=== PATIENT | female | born 1980 | race Caucasian/White ===

== ENCOUNTER 2023-11-13 14:40 | Emergency (ER) | payer MEDICAID, SELFPAY ==
--- NOTE | ~2023-11-13 | XR_ITS ---
EXAMINATION: XR CHEST CLINICAL INFORMATION: Cough, URI COMPARISON: Chest 08/09/2018 TECHNIQUE: Frontal view of the chest was obtained. The patient was unable to remove nipple jewelry. FINDINGS: Patchy opacity in the left lower lobe is consistent with pneumonia. No pleural effusion. Mild elevation the right hemidiaphragm is again noted. No significant abnormality is noted involving the heart, mediastinum, bony thorax or soft tissues. XR/XR chest 1V IMPRESSION: Left lower lobe pneumonia.
[2023-11-13 15:54] VITALS: BP 123/69; PULSE 91; RESP 18; TEMP 36.8; O2SAT 96; BMI 31.6
--- NOTE | 2023-11-13 16:06 | ED.GENADULT ---
HPI - General Adult General Chief complaint: Dyspnea Stated complaint: Asthma Time Seen by Provider: 11/13/23 16:32 Source: patient Mode of arrival: ambulatory Limitations: no limitations History of Present Illness HPI narrative: Patient comes to the emergency room complaining of 5 days of cough with green sputum. Patient states she has history of asthma has been using her inhaler. Patient denies fever or chills Related Data Previous Rx's Medication Instructions Recorded azithromycin 250 mg tablet 250 mg PO DAILY 5 days #5 tabs 11/13/23 prednisone 50 mg tablet 50 mg PO DAILY #5 tabs 11/13/23 Allergies Allergy/AdvReac Type Severity Reaction Status Date / Time Penicillins Allergy Intermediate RASH Unverified 07/22/20 17:10 penicillin V Allergy Unknown Verified 11/09/15 00:00 Review of Systems Review of Systems: Constitutional : No Weight loss, No Fever, No Chills, No Night Sweats, No Fatigue, No Malaise ENT/Mouth : No Hearing loss, No Ear Pain, No Nasal Congestion, No Sinus Pain, No Hoarseness, No sore throat, No Rhinorrhea, No Swallowing Difficulty Eyes: No Eye Pain, No Swelling, No Redness, No Foreign Body, No Discharge, No Vision Changes Cardiovascular : No Chest Pain, No SOB, No Dyspnea on Exertion, No Orthopnea, No Edema, No Palpitations Respiratory : Coughing with sputum production, wheezing Gastrointestinal : No Nausea, No Vomiting, No Diarrhea, No Constipation, No abdominal Pain, No Hematochezia, No Melena Genitourinary : no irregular bleeding, No Dysuria, No Urinary Frequency, No Hematuria, No Urinary Incontinence, No Urgency, No Flank Pain, No Urinary Flow Changes, No Hesitancy Musculoskeletal : No joint pain, No Myalgias, No Joint Swelling Skin : No Skin Lesions, No rash Neuro : No Weakness, No Numbness, No Paresthesias, No Loss of Consciousness, No Dizziness, No Headache Psych : No Anxiety/Panic, No Depression, No SI/HI/AH/VH, No Social Issues, Heme/Lymph: No Bruising, No Bleeding,No Lymphadenopathy Endocrine : No Polyuria, No Polydipsia, No Temperature Intolerance PMFSH Past Medical History Onset Date is defined in the Problem List Problems that require an onset date and time if occurred within 24 hrs of arrival to the ED Aortic Dissection and Rupture; Neurologic impairment; Cardiopulmonary Arrest; Endotracheal Intubation; Insertion or Replacement of Mechanical Circulatory Assist Device Medical History (Updated 11/14/23 @ 00:00 by Background Daemon) Asthma exacerbation Social History Social History Advance Directives: No Advance Directives Information Provided: No Physical Exam ED Vital Signs: Vital Signs - 24 hr 11/13/23 15:54 11/13/23 16:30 Temperature 98.3 F Pulse Rate 91 90 Respiratory Rate 18 20 Blood Pressure 123/69 Pulse Oximetry 96 Oxygen Delivery Method Room Air BMI result Body Mass Index 31.6 Const Other: Appearance: Alert. Oriented X3. No acute distress. Well-appearing Eyes: Pupils equal, round and reactive to light. ENT: Pharynx normal. Neck: Normal inspection. Neck supple. No lymph nodes noted. No crepitus CVS: Normal heart rate and rhythm. Pulses normal. Normal S1 and S2 Respiratory: No respiratory distress. Very occasional wheezing, almost forceful wheezing Abdomen: Soft and nontender. No rigidity. No distention. Skin: Skin warm and dry. Normal skin color. Normal skin turgor. Extremities: No lower extremity edema. No Lacerations. No Rash Neuro: Oriented X 3. No motor deficit. No sensory deficit. Moving all extremities. No slurred speech. CN 2 through 12 grossly intact Psych: calm, cooperative, normal affect Course Course Course Narrative: RME: 43-year-old female tested COVID positive last week states coughing with green sputum. Patient has audible wheezing. E.d. bronchodilator protocol. Start ordered. Chest x-ray ordered. Prednisone ordered Medications Administered Discontinued Medications Generic Name Dose Route Start Last Admin Trade Name Freq PRN Reason Stop Dose Admin Albuterol/Ipratropium 3 ml 11/13/23 16:28 11/13/23 16:38 Albuterol/Iprat 2.5/0.5mg 3 Ml Ampul.Neb INHALE 11/13/23 16:29 3 ml ONCE ONE Administration Prednisone 60 mg 11/13/23 16:04 11/13/23 17:23 Prednisone 20 Mg Tablet PO 11/13/23 16:05 60 mg ONCE ONE Administration Medical Decision Making Medical Decision Making MDM Narrative: -my interpretation of labs: patient tested positive for COVID-19 -patient given nebulization treatments, prednisone -patient wheezing, oxygen saturation 100% on room air. -patient is outside the window of treatment for Paxlovid -my interpretation of chest x-ray, possible pneumonia -patient states that she has enough albuterol at home her treatments. Differential Diagnosis Differential Diagnoses: The differential diagnosis associated with the presentation includes (Asthma, COVID, influenza, viral URI) Lab Data MDM Lab Attestation statement: I reviewed the patient's lab results. Labs: Lab Results 11/13/23 Range/Units 16:02 Influenza Type A (PCR) NEGATIVE (Negative) Influenza Type B (PCR) NEGATIVE (Negative) RSV RNA Qual (PCR) NEGATIVE (Negative) SARS-CoV-2 RNA (RT-PCR) POSITIVE A (Negative) Independent Interpretation I performed an independent interpretation of an: Plain X-Ray Radiology Impression Discussion of test interpretation with radiology: I have reviewed the radiologist's reading. Radiologist Impression: Patchy opacity in the left lower lobe is consistent with pneumonia. No pleural effusion. Mild elevation the right hemidiaphragm is again noted. No significant abnormality is noted involving the heart, mediastinum, bony thorax or soft tissues. XR/XR chest 1V IMPRESSION: Left lower lobe pneumonia. Discharge Plan Discharge Clinical Impression: Asthma, COVID-19 Patient Disposition: Home, Self-Care Instructions: Asthma (ED), Community Acquired Pneumonia (ED), COVID-19 (Coronavirus Disease 2019) (ED) Additional Instructions: Please follow-up with your primary care physician tomorrow. If you have any worsening or new symptoms, please return to the emergency room or call 911 Prescriptions: New prednisone 50 mg tablet 50 mg PO DAILY Qty: 5 0RF azithromycin 250 mg tablet 250 mg PO DAILY 5 Days Qty: 5 0RF Interventions: ED Discharge Assessment Last Done: 11/13/23 17:55 Discharge Date/Time: 11/13/23 17:56
--- OUTSIDE RECORDS SUMMARY | 2023-11-13 16:07 | XMS_ITS | Continuity of Care Document ---
Author Name Unknown Organization [facility] ter Address [address] [place] [id number]- Care Team Providers Care Life Skills Trainer Name Role Phone Cheryl Alexander Primary Care Physician [place] [facility] [place] 12/29/21 - 12/29/[address] [address]- Discharge Disposition: A-D/C Walkout Attending Physician: Not on Staff, Attending MD Admitting Physician: Not on Staff, Admitting MD Referring Physician: Not on Staff, Referring MD Allergies, Adverse Reactions, Alerts Substance Reaction Severity Status penicillin Active penicillins Active Immunizations Given and Recorded Vaccine Date Status Refusal Reason pneumococcal 23-valent vaccine 10/14/16 Given influenza virus vaccine, inactivated 10/14/16 Give n Medications Advair HFA 230 mcg / 21 mcg 2 puffs, Inhalation, 2 times a day, # 180 each, 2 Refills, Maintenance, 12/31/17 8:01:00, Aerosol, 2 puffs Inhalation 2 times a day Start Date: 12/31/17 Status: Ordered Albuterol 90 mcg Inhaler Maintenance, 03/29/15 7:29:56 Start Date: 03/29/15 Status: Ordered buPROPion 150 mg/12 hours (SR) oral tablet, extended release 1 tablet = 150 mg, By Mouth, 2 times a day, # 180 tablet, 3 Refills, Maintenance, 12/17/17 8:57:45,ER Tablet Start Date: 12/17/17 Status: Ordered Flovent HFA 44 mcg/inh inhalation aerosol 2 puffs, Inhalation, 2 times a day, # 11 Gm, 0 Refills, Maintenance, 10/13/16 17:48:28, Aerosol Start Date: 10/13/16 Status: Ordered fluticasone-salmeterol 232 mcg-14 mcg/inh inhalation powder 1 puffs, Inhalation, 2 times a day, # 1 each, 0 Refills, Maintenance, 12/17/17 9:02:16, 1 puffs Inhalation 2 times a day Start Date: 12/17/17 Status: Ordered omeprazole 20 mg oral enteric coated capsule 1 capsule = 20 mg, By Mouth, Daily, before a meal, 0 Refills, Maintenance, 10/13/16 17:48:18, EC Capsule Start Date: 10/13/16 Status: Ordered Qvar 80 mcg/inh inhalation aerosol = 80 mcg, Inhalation, 2 times a day, 0 Refills, Maintenance, 12/17/17 8:27:41 Start Date: 12/17/17 Status: Ordered Qvar Redihaler 80 mcg/inh inhalation aerosol See Instructions, Prepare Study: QVAR in addition to daily maintenance meds. Take QVAR 1 puff for EACH puff of beta-agonist or 5 puffs for each nebulizer use., # 1 each, 11 Refills, Maintenance, 11/18/18 16:43:03 EST, PREPARE STUDY PATIENT: THIS PRESC... Start Date: 11/18/18 Status: Ordered Qvar Redihaler 80 mcg/inh inhalation aerosol See Instructions, PREPARE Study 1 puff for each puff of beta-agonist, 5 puffs for each nebulizer use. Does not replace daily maintenance medication, # 1 each, 2 Refills, Maintenance, 05/21/19 12:52:33 EDT, Prescription for refills only, PREPARE Study... Start Date: 05/21/19 Status: Ordered Qvar with Dose Counter 80 mcg/inh inhalation aerosol See Instructions, PREPARE STUDY: take 1 puff for each puff of beta-agonist. 5 puffs for each nebulization. This plan does not replace daily maintenace meds, # 1 each, 11 Refills, Maintenance, 06/25/18 18:19:37 EDT, PREPARE STUDY: take 1 puff for each... Start Date: 06/25/18 Status: Ordered Symbicort 80mcg/4.5mcg Inhaler 2, puffs, Inhalation, 2 times a day, # 1 each, Refills 0, Tot. Refills 0, Maintenance, 04/02/21 14:13:00 EDT, Aerosol, Route to Pharmacy Electronically, NCPDP_[id number], [facility], 165, cm, 04/02/21 11:51:00 EDT, Height Start Date: 04/02/21 Status: Ordered Ventolin HFA 108 mcg/inh inhalation aerosol with adapter 2 puffs, Inhalation, 4 times a day, 0 Refills, Maintenance, 12/17/17 8:27:35 Start Date: 12/17/17 Status: Ordered Vital Signs Most recent to oldest [Reference Range]: 1 2 Oxygen Saturation [94-100 %] 96 % (12/29/21 4:37 PM) 95 % (12/29/21 4:27 PM) Pulse Rate [55-90 bpm] 106 bpm *H* (12/29/21 4:37 PM) 101 bpm *H* (12/29/21 4:27 PM) Blood Pressure [90-138/55-84 mm Hg] 125/ 68mm Hg (12/29/21 4:37 PM) Respiratory Rate [16-30 br/min] 20 br/mi n (12/29/21 4:37 PM) Temperature [96.8-100.4 DegF] 98.8 DegF (12/29/21 4:37 PM) Mode of Delivery (Oxygen) Room air (12/29/21 4:37 PM) Room air (12/29/21 4:27 PM) Blood pressure sites Arm, right (12/29/21 4:37 PM) Temperature Route Oral (12/29/21 4:37 PM) Social History Social History Type Response Smoking Status Current every day ken lazo entered on: 12/17/17 Sex
--- OUTSIDE RECORDS SUMMARY | 2023-11-13 16:07 | XMS_ITS | Continuity of Care Document ---
Author Name Unknown Organization [facility] ter Address [address] [place] [id number]- Care Team Providers Care Sawmill Production Worker Name Role Phone Cheryl Alexander Primary Care Physician Encounter [facility] [place] Date(s): 09/07/23 - 09/07/[address] [address]- Discharge Disposition: A-D/C Walkout Attending Physician: Not [...] 11/18/18 16:43:03 EST, PREPARE STUDY PATIENT: THIS [facility]... Start Date: 11/18/18 Status: Ordered Qvar Redihaler [...] 14:13:00 EDT, Aerosol, Route to Pharmacy Electronically, NCPDP_[id number], [facility], 165, cm, 04/02/21 11:51:00 EDT, Height Start Date: 04/02/21 Status: Ordered Ventolin HFA 108 mcg/inh inhalation aerosol with adapter 2 puffs, Inhalation, 4 times a day, 0 Refills, Maintenance, 12/17/17 8:27:35 Start Date: 12/17/17 Status: Ordered Vital Signs Most recent to oldest [Reference Range]: 1 Oxygen Saturation [94-100 %] 99 % (09/07/23 10:18 AM) Pulse Rate [55-90 bpm] 84 bpm (09/07/23 10:18 AM) Blood Pressure [90-138/55-84 mm Hg] 137/ 77mm Hg (09/07/23 10:18 AM) Respiratory Rate [16-30 br/min] 20 br/mi n (09/07/23 10:18 AM) Temperature [96.8-100.4 DegF] 98.1 DegF (09/07/23 10:18 AM) Mode of Delivery (Oxygen) Room air (09/07/23 10:18 AM) Blood pressure sites Arm, left (09/07/23 10:18 AM) Temperature Route Oral (09/07/23 10:18 AM) Social History Social History Type Response Smoking Status Current every day ken lazo entered on: 12/17/17 Sex Patient Care team information Care Team Personnel Name: Rico Odonnell RN Position: Carolyn RN Member Role: Primary Care Nurse Care Team Related Persons Name: SONY HSU Address: home [address] [place] [address] Name: EYAD SHEEHAN Address: [address] [place] [address]
--- OUTSIDE RECORDS SUMMARY | 2023-11-13 16:08 | XMS_ITS | Continuity of Care Document ---
Author Name Unknown Organization [facility] ter Address [address] [place] [id number]- Care Team Providers Care Liner Installer Name Role Phone Kyle Velasquez Primary Care Physician [phone] Encounter [facility] [place] Date(s): 06/04/21 - 06/04/[address] [address]- Discharge Disposition: A-D/C Walkout Attending Physician: Not [...] 11/18/18 16:43:03 EST, PREPARE STUDY PATIENT: THIS [facility]... Start Date: 11/18/18 Status: Ordered Qvar Redihaler [...] 14:13:00 EDT, Aerosol, Route to Pharmacy Electronically, NCPDP_[id number], [facility], 165, cm, 04/02/21 11:51:00 EDT, Height Start Date: 04/02/21 Status: Ordered Ventolin HFA 108 mcg/inh inhalation aerosol with adapter 2 puffs, Inhalation, 4 times a day, 0 Refills, Maintenance, 12/17/17 8:27:35 Start Date: 12/17/17 Status: Ordered Vital Signs Most recent to oldest [Reference Range]: 1 2 3 Oxygen Saturation [94-100 %] 99 % (06/04/21 4:53 PM) 100 % (06/04/21 11:36 AM) 100 % (06/04/21 11:17 AM) Pulse Rate [55-90 bpm] 74 bpm (06/04/21 4:53 PM) 69 bpm (06/04/21 11:36 AM) 84 bpm (06/04/21 10:51 AM) Blood Pressure [90-138/55-84 mm Hg] 128/76mm Hg (06/04/21 4:53 PM) 127/68mm Hg (06/04/21 11:36 AM) Diastolic Blood Pressure [55-84 mm Hg] 70 mm Hg (06/04/21 11:17 AM) Respiratory Rate [16-30 br/min] 18 br/min (06/04/21 4:53 PM) 18 br/min (06/04/21 11:36 AM) 18 br/min (06/04/21 11:07 AM) Temperature [96.8-100.4 DegF] 98.5 DegF (06/04/21 4:53 PM) 98.9 DegF (06/04/21 11:36 AM) Mode of Delivery (Oxygen) Room air (06/04/21 4:53 PM) Room air (06/04/21 11:36 AM) Room air (06/04/21 11:17 AM) Blood pressure sites Arm, right (06/04/21 4:53 PM) Arm, right (06/04/21 11:36 AM) Arm, left (06/04/21 11:17 AM) Temperature Route Oral (06/04/21 4:53 PM) Oral (06/04/21 11:36 AM) Oral (06/04/21 11:17 AM) Social History Social History Type Response Smoking Status Current every day ken lazo entered on: 12/17/17 Sex
--- OUTSIDE RECORDS SUMMARY | 2023-11-13 16:08 | XMS_ITS | Continuity of Care Document ---
Author Name Unknown Organization [facility] ter Address [address] [place] [id number]- Care Team Providers Care Javascript Ui Developer Name Role Phone Kyle Velasquez Primary Care Physician [place] [facility] [place] 04/02/21 - 04/02/[address] [address]- Encounter Diagnosis Asthma exacerbation(Final) - 04/02/21 Discharge Disposition: A-D/C Home Attending Physician: Yary Cheung MD Admitting Physician: Yary Cheung MD Referring Physician: Not on Staff, Referring [...] EC Capsule Start Date: 10/13/16 Status: Ordered predniSONE 20 mg oral tablet 3 tablet = 60 mg, By Mouth, Daily, for 5 days, # 15 tablet, 0 Refills, Acute 04/07/21 14:15:00 EDT,04/02/21 14:15:00 EDT, Tablet, [facility], Partial fill upon patient request if the prescription is for a schedule II opioid drug., 165, cm,... Start Date: 04/02/21 Stop Date: 04/07/21 Status: Ordered Qvar 80 mcg/inh inhalation aerosol [...] 14:13:00 EDT, Aerosol, Route to Pharmacy Electronically, NCPDP_[id number], [facility], 165, cm, 04/02/21 11:51:00 EDT, Height Start Date: 04/02/21 Status: Ordered Ventolin HFA 108 mcg/inh inhalation aerosol with adapter 2 puffs, Inhalation, 4 times a day, 0 Refills, Maintenance, 12/17/17 8:27:35 Start Date: 12/17/17 Status: Ordered Vital Signs Most recent to oldest [Reference Range]: 1 2 3 Height 165 cm (04/02/21 11:51 AM) Oxygen Saturation [94-100 %] 99 % (04/02/21 3:00 PM) 96 % (04/02/21 12:52 PM) 98 % (04/02/21 11:51 AM) Pulse Rate [55-90 bpm] 92 bpm *H* (04/02/21 3:00 PM) 89 bpm (04/02/21 12:52 PM) 102 bpm *H* (04/02/21 11:51 AM) Blood Pressure [90-138/55-84 mm Hg] 145/76mm Hg *H* (04/02/21 3:00 PM) 135/60mm Hg (04/02/21 12:52 PM) 124/71mm Hg (04/02/21 11:51 AM) Respiratory Rate [16-30 br/min] 16 br/min (04/02/21 3:00 PM) 22 br/min (04/02/21 12:52 PM) 24 br/min (04/02/21 11:51 AM) Temperature [96.8-100.4 DegF] 98.1 DegF (04/02/21 3:00 PM) 98.1 DegF (04/02/21 11:51 AM) Mode of Delivery (Oxygen) Room air (04/02/21 3:00 PM) Room air (04/02/21 12:52 PM) Room air (04/02/21 11:51 AM) Blood pressure sites Arm, left (04/02/21 3:00 PM) Arm, left (04/02/21 12:52 PM) Arm, right (04/02/21 11:51 AM) Temperature Route Oral (04/02/21 3:00 PM) Oral (04/02/21 11:51 AM) Social History Social History Type Response Smoking Status Current every day ken lazo entered on: 12/17/17 Sex
[2023-11-13 16:30] VITALS: PULSE 90; RESP 20; O2SAT 100
[2023-11-13] MEDS: Albuterol/Iprat 2.5/0.5MG 3 ML AMPUL.NEB INHALE (16:38)
[2023-11-13 16:57] LABS: Influenza A PCR NEGATIVE (Negative); Influenza B PCR NEGATIVE (Negative); Resp Syncy Virus RNA Qual PCR NEGATIVE (Negative); SARS COV2 PCR INHOUSE POSITIVE (Negative)
[2023-11-13] MEDS: predniSONE 20 MG TABLET 60 MG PO (17:23)
== END 2023-11-13 17:56 | disposition home or self-care (01) ==
PROVIDERS: Physician Assistant; Emergency Provider Emergency Medicine
DX: U07.1 COVID-19 (principal); R06.02 Shortness of breath; R05.9 Cough, unspecified
CPT/HCPCS: 0241U; 71045; 94640; 99283; 99284

== ENCOUNTER 2025-08-19 19:18 | Emergency (ER) | payer SELFPAY ==
--- NOTE | ~2025-08-19 | XR_ITS ---
CLINICAL HISTORY: short of breath 2 view chest x-ray Comparison: CR/NV/SR - XR CHEST 2 VIEWS - 11/13/2023 04:35 PM EST Findings: No dense focal airspace consolidation. Peribronchial edema. No effusion. No pneumothorax. Normal heart size. No acute soft tissue or osseous abnormality. Impression: 1. Peribronchial edema commonly seen in setting of viral versus reactive airways disease. This document has been electronically signed by: Gloria De Leon MD on 08/19/2025 20:42:27
--- NOTE | 2025-08-19 19:33 | ED_ITS ---
[facility] - General Adult General Chief complaint: Asthma Stated complaint: asthma Time Seen by Provider: 08/19/25 22:19 Source: patient Limitations: no limitations History of Present Illness ED Provider: Dr. Gonzalez [facility] narrative: This is a 45-year-old female history of asthma presented hospital today for shortness of breath and wheezing. Patient stated she use her asthma inhaler at home without any alleviation. Due to her wheezing she presents to the ER for evaluation. Related Data Previous Rx's ?Medication ?Instructions ?Recorded azithromycin 250 mg tablet 250 mg PO DAILY 5 days #5 t abs 11/13/23 prednisone 50 mg tablet 50 mg PO DAILY #5 tabs 11/13 albuterol sulfate 90 mcg/actuation 2 puff inhalation Q 6H PRN 08/19/25 aerosol inhaler (Ventolin HFA) shortness of breath or wheezing #6.7 grams azithromycin 250 mg tablet See Rx Instructions PO .COM PLEX #6 08/19/25 tabs prednisone 50 mg tablet 50 mg PO DAILY 5 days #5 tab s 08/19/25 Allergies Allergy/AdvReac Type Severity Reaction Status Date / Time Penicillins Allergy Intermediate RASH Verified 08/19/25 19:37 penicillin V Allergy Unknown Rash Verified 08/19/25 19:37 Review of Systems 2 Review of Systems: Pertinent review of systems as mentioned in [facility]. All other system otherwise negative. [facility] Past Medical History [facility] Narrative: Medical history as mentioned in [facility] Medical History (Updated 08/19/25 @ 23:50 by Celeste Gonzalez DO) Asthma exacerbation Social History Social History Advance Directives: No Advance Directives Information Provided: Yes Do you have a plan to hurt others: No Plan Physical Exam ED Exam Exam: General: Pleasant, no distress, interacting appropriately Head: Normacephalic, atraumatic ENT: oral mucosa moist, neck supple, no tracheal deviation Cardiovascular: regular rate, regular rhythm, no murmurs, rubbing, gallops Respiratory: Bilateral wheezing on exam Neurological: Awake and alert, no facial droop noted Skin: Warm and dry Psychiatric: Appropriate mood and thoughts Vital Signs: Vital Signs - 24 hr 08/19/25 19:34 08/19/25 22:03 08/19/25 23:23 Temperature 98.3 F 98.4 F Pulse Rate 63 61 72 Respiratory Rate 16 16 Blood Pressure 142/75 H 135/57 L Pulse Oximetry 98 96 Oxygen Delivery Method Room Air Room Air BMI result Body Mass Index 30.9 Course Course Course Narrative: This is a Rapid Medical Examination (RME) performed by Shane Gooden PA-C in triage. Full HPI, ROS, assessment and treatment plan per primary provider in the Main ED. Hx: 45 yo F hx asthma here w/ concerns of asthma exacerbation. increasing wheezing/sob x1 week. not responsive w/ home neb/ inhalers. grandson sick at home. PE/vitals: not hypoxic or tachycardic.expiratory wheezes. no resp distress. Plan: labs, viral swabs, cxr Medications Administered Discontinued Medications Generic Name Dose Route Start Last Admin Trade Name Freq PRN Reason Stop Dose Admin Albuterol Sulfate 2.5 mg/ 0 mg 08/19/25 23:21 08/19/25 23:22 Albuterol/Ipratropium 3 ml INHALE 08/19/25 23:22 1 dose ONCE ONE Administration Prednisone 60 mg 08/19/25 22:47 08/19/25 23:09 Prednisone 20 Mg Tablet PO 08/19/25 22:48 60 mg ONCE ONE Administration Medical Decision Making Medical Decision Making [facility] Narrative: This is a 45-year-old female history of asthma presented hospital today for evaluation of shortness of breath. We will plan to give patient a breathing treatment here. Prednisone will be provided the patient. Chest x-ray show inflammatory process in the chest. Lab work otherwise unremarkable. We will plan to reassess patient after treatment. Patient stated the breathing appears similar to when she had arrived. Patient is not tachypneic nor hypoxic. We will plan to discharge patient home at this time. We will start patient on azithromycin, prednisone. We will refill her albuterol inhaler as well. The patient is agreeable to this plan all questions were addressed. Differential Diagnosis Differential Diagnoses: The differential diagnosis associated with the presentation includes Asthma exacerbation, pneumonia, bronchitis Lab Data [facility] Lab Attestation statement: I reviewed the patient's lab results. 08/19/25 19:42 08/19/25 19:42 Labs: Lab Results 08/19/25 Range/Units 19:42 WBC 9.8 (4.8-10.8) X10*3/uL RBC 4.27 (4.20-5.50) X10*6/uL Hgb 13.0 (12.0-16.0) g/dl Hct 38.6 (37.0-47.0) % MCV 90.4 (80.0-98.0) fL MCH 30.4 (27.0-33.0) pg MCHC 33.7 (31.0-35.0) g/dl RDW 12.7 (11.0-16.0) % Plt Count 292 (160-400) X10*3/uL MPV 9.6 (9.4-12.3) fL Immature Gran % (Auto) 0.2 (0.0-0.4) % Neut % (Auto) 48.5 (45-73) % Lymph % (Auto) 36.2 (20-40) % [place] % (Auto) 7.3 (2-11) % Eos % (Auto) 7.4 H (0-4) % Baso % (Auto) 0.4 (0-2) % Lymph # (Auto) 3.5 (1.2-4.9) X10*3/uL [place] # (Auto) 0.7 (0.1-1.2) X10*3/uL Eos # (Auto) 0.7 H (0.0-0.4) X10*3/uL Baso # (Auto) 0.0 (0.0-0.2) X10*3/uL Abs Immat Gran (auto) 0.02 (0.00-0.03) X10*3/uL Absolute Neuts (auto) 4.7 (2.0-8.3) x10*3/uL Absolute Nucleated RBC 0.000 (0.0-0.012) X10*3/uL Nucleated RBC % (auto) 0.0 (0.0-0.2) /100WBC Sodium 142 (135-145) mmol/L Potassium 4.4 (3.3-5.1) mmol/L Chloride 110 H (96-108) mmol/L Carbon Dioxide 25 (22-29) mmol/L Anion Gap 11 L (12-20) BUN 12 (9-16) mg/dL Creatinine 0.66 (0.5-1.4) mg/dL Estim Creat Clear Calc 101.0 Estimated GFR > 60 Random Glucose 98 (60-115) mg/dL Calcium 9.5 (8.4-10.2) mg/dL Magnesium 2.1 (1.6-2.6) mg/dL Total Bilirubin 0.3 (0.0-1.0) mg/dL AST 17 (5-31) U/L ALT 20 (0-31) U/L Alkaline Phosphatase 83 (39-117) U/L Total Protein 6.7 (6.5-8.0) g/dL Albumin 4.3 (3.5-5.0) g/dL COVID-19 (JULIETA) Negative (Negative) COVID-19 Clin Com See Note Influenza Type A (COLIN) Negative (Negative) Influenza Type B (COLIN) Negative (Negative) Influenza A & B Note See Note Independent Interpretation I performed an independent interpretation of an: Plain X-Ray Radiology Impression Discussion of test interpretation with radiology: I have reviewed the radiologist's reading. Prescription Management I considered prescription management with: Antibiotic Prednisone, albuterol inhaler Chronic Conditions Asthma Discharge Plan Discharge Clinical Impression: Asthma with acute exacerbation Qualifiers: Asthma severity: mild Asthma persistence: persistent Qualified Code(s): J45.31 - Mild persistent asthma with (acute) exacerbation Patient Disposition: Home, Self-Care Instructions: Asthma (ED) Prescriptions: New azithromycin 250 mg tablet See Rx Instructions .ROUTE .COMPLEX Qty: 6 0RF Rx Instructions: For 250 mg dose pack: take 500 mg today (day 1), then 250 mg for 4 days (days 2-5) prednisone 50 mg tablet 50 mg PO DAILY 5 Days Qty: 5 0RF albuterol sulfate [Ventolin HFA] 90 mcg/actuation HFA aerosol inhaler 2 puff inhalation Q6H PRN (Reason: shortness of breath or wheezing) Qty: 6.7 0RF No Action prednisone 50 mg tablet 50 mg PO DAILY Qty: 5 0RF azithromycin 250 mg tablet 250 mg PO DAILY 5 Days Qty: 5 0RF Print Language: Mosotho
[2025-08-19 19:34] VITALS: BP 142/75; PULSE 63; RESP 16; TEMP 36.8; O2SAT 98; BMI 30.9
[2025-08-19 19:48] LABS: Hematocrit 38.6 % (37.0-47.0); Hemoglobin 13.0 g/dl (12.0-16.0); Imm Gran Abs Auto 0.02 X10*3/uL (0.00-0.03); Imm Gran Pct Auto 0.2 % (0.0-0.4); Lymphocytes Absolute Auto 3.5 X10*3/uL (1.2-4.9); MANUAL DIFF FLAG NO; Mean Corpuscular HGB Conc 33.7 g/dl (31.0-35.0); Mean Corpuscular Hemoglobin 30.4 pg (27.0-33.0); Mean Corpuscular Volume 90.4 fL (80.0-98.0); NRBC Abs Auto 0.000 X10*3/uL (0.0-0.012); NRBC Pct Auto 0.0 /100WBC (0.0-0.2); Platelet Count 292 X10*3/uL (160-400); Red Blood Count 4.27 X10*6/uL (4.20-5.50); White Blood Count 9.8 X10*3/uL (4.8-10.8)
--- OUTSIDE RECORDS SUMMARY | 2025-08-19 19:48 | XMS_ITS | Clinical Summary ---
Demographics Address [address] [facility] [address] [place] [address] Mobile Phone Preferred Language Nigerian; Castilian Marital Status Single Mosque Affiliation Unknown Race White Ethnic Group or Author Organization [facility] Address [address] [place] [address] Care Team Providers Care Cash Applications Coordinator Name Role Phone Bakari Tilley MD Primary Care Provider [phone] Source Comments PLEASE NOTE, if this patient is a minor, it may be UNLAWFUL to discuss sensitive information that is contained in these records (such as FAMILY PLANNING, MENTAL HEALTH or SUBSTANCE ABUSE) with the minor patient's parent or other person without the patient's specific authorization.[facility] Allergies Active Allergy Reactions Criticality Noted Date Comments Penicillin Swelling 08/23/2015 Medications nebulizer accessoriesIndica tions:Moderate persistent asthma with acute exacerbation FOR ASTHMA TREATMENT 1 Device 1 0 Active nebulizer and compressorIndicat ions:Moderate persistent asthma with acute exacerbation FOR ASTHMA TREATMENT 1 Each 0 Active bismuth subsalicylate (PEPTO BISMOL) 262 mg/15 mL suspensionIndicat ions:Upset stomach Take 15 mL by mouth every 6 (six) hours as needed for indigestion 236 Bottle 0 Active ibuprofen 400 mg tabletIndications :Episodic tension-type headache, not intractable Take 1 Tab by mouth 3 (three) times daily as needed for pain Take with food 30 Tab 0 Active cholecalciferol, vitamin D3, 50 mcg (2,000 unit) capsule Take 1 Capsule by mouth once daily 1 Active diclofenac sodium (VOLTAREN) 1 % gelIndications:Ac [place] bilateral low back pain without sciatica Apply topically 2 (two) times daily 100 g 1 Active oxymetazoline (AFRIN SINUS, OXYMETAZOLINE,) 0.05 % nasal sprayIndications: Viral upper respiratory tract infection Place 2 Sprays into the nostril(s) 2 (two) times daily 15 mL 1 Active cyclobenzaprine (FLEXERIL) 5 mg tabletIndications :Acute bilateral low back pain without sciatica Take 1 Tablet by mouth nightly at bedtime 10 Tablet 3 Active lidocaine (LIDODERM) 5 % patchIndications: Acute bilateral low back pain without sciatica Place 1 Patch onto the skin once daily (every 24 hours) 30 Patch 3 3 Active traMADoL (ULTRAM) 50 mg tabletIndications :Acute pain of right shoulder Take 1 Tablet by mouth every 6 (six) hours as needed for pain 30 Tablet 3 Active budesonide-formot Bertin (SYMBICORT) 160-4.5 mcg/actuation inhalerIndication s:Moderate persistent asthma with acute exacerbation INHALE 2 PUFFS INTO THE LUNGS TWICE A DAY 10.2 g 5 3 Active albuterol (ACCUNEB) 0.63 mg/3 mL nebulizer solutionIndicatio ns:Moderate persistent asthma with acute exacerbation USE 1 VIAL VIA NEBULIZER EVERY 6 HOURS NEEDED FOR WHEEINZING 300 mL 11 3 Active albuterol HFA 90 mcg/actuation inhalerIndication s:Moderate persistent asthma with acute exacerbation Inhale 2 Puffs into the lungs every 4 (four) hours as needed for shortness of breath or wheezing 18 g 11 3 Active pantoprazole (PROTONIX) 40 mg EC tabletIndications :Gastroesophageal reflux disease without esophagitis Take 1 Tablet by mouth once daily 30 Tablet 2 3 Active acetaminophen (TYLENOL) 500 mg tablet Take 1 Tablet by mouth every 6 (six) hours as needed for pain 60 Tablet 1 3 Active montelukast (SINGULAIR) 10 mg tabletIndications :Moderate persistent asthma with acute exacerbation TAKE 1 TABLET BY MOUTH EVERYDAY AT BEDTIME 90 Tablet 1 3 Active predniSONE (DELTASONE) 20 mg tabletIndications :COVID-19 virus infection,Moderat e persistent asthma with acute exacerbation Take 1 Tablet by mouth once daily 5 Tablet 4 Active dextromethorphan- guaifenesin (ROBITUSSIN DM) 10-100 mg/5 mL syrupIndications: Viral upper respiratory tract infection Take 5 mL by mouth 3 (three) times daily as needed for cough or congestion 236 mL 4 Active hydrOXYzine HCL (ATARAX) 25 mg tabletIndications :Anxiety Take 1 Tablet by mouth 3 (three) times daily as needed for anxiety 60 Tablet 1 4 Active Active Problems Problem Noted Date Diagnosed Date GERD (gastroesophageal reflux disease) 9 Bilateral hand pain 02/14/2017 Overview (02/19/2017): Saw neuro on 02/12/2017: referred for EMG emg done 02/12/17: normal EMG Leiomyoma of uterus 02/05/2017 Overview (02/05/2017): 01/31/17 US done at [facility]: 2 small uterine leiomyoma mildly decreased since 09/2016: dominant follicle in right ovary vs cyst increased in size since prior study. Dominant follicle vs cyst in left ovary Left upper quadrant abdominal mass 02/05/2017 Overview (02/05/2017): 01/25/17 Ultrasound showed no sonographic correlation to palpable area. Further assessment with CT needed. On 02/01/17 pelvic u/s showed dominant follicle in left ovary measuring 2.3x1.8x2.2cm History of Papanicolaou smear of cervix 12/10/19 Overview (12/10/2016): Done 11/23/2016: Negative for squamous intraepithelial lesion and malignancy. Negative HPV Repeat in 5 year Cervical dysplasia 10/25/2015 Overview (10/25/2015): Had a Leep done 2009. No follow up since then. HPV negative Immune to hepatitis A 10/25/2015 Immune to hepatitis B 10/25/2015 Depression 10/25/2015 Overview (10/25/2015): Smoking to cope, No meds but tried- trazodone, Paxil, Wellbutrin, Buspar. Umbilical hernia 10/25/2015 Pterygium 10/25/2015 Overview (10/25/2015): Small Allergic rhinitis 10/25/2015 Asthma 10/25/2015 Overview (01/16/2018): Went to pulmonary on 12/17/2017: [facility] pulm: triggers need to be identified- will do rast testing and IgE panel. Will check phenotype she belongs to. Started her on advair 230, fluticasone/solumedrol 230/21 mcg one inhalation BID. Resolved Problems Problem Noted Date Diagnosed Date Resolved Date Vaginosis 10/25/2015 06/24/2021 Immunizations Immunization Administration Dates Next Due Flu, Preservative Free 11/06/2017 HEP B,ADULT 06/05/2008 Hep A, Ped/adol, 2 Dose 06/05/2008 Hep B, Adult/Adol ([id number]/RECOMBIVAX-AD ULT) 06/05/2008 INFLUENZA, SEASONAL, INJECTABLE 10/21/2015,08/27 PFIZER COVID VACCINE, PURPLE CAP, 12+ 04/20/2021 ,03/10/2021 PNEUMOCOCCAL CONJUGATE PCV 13 11/06/2017 PPD 12/23/2019 [facility] Funded Flu Vaccine 10/21/2012 TDAP 06/26/2012 ZOSTER VACCINE, RECOMBINANT (SHINGRIX) 4,08/16/2023 Family History Medical History Relation Name Comments Asthma Father Asthma Mother Unknown Sister Relation Name Status Comments Brother 1 Alive Brother 2 Alive Father Mother Alive Sister Alive Social History Tobacco Use Types Packs/Day Years Used Date Smoking Tobacco: Some Days Cigarettes Passive Smoke Exposure: Never Smokeless Tobacco: Never Tobacco Cessation:Ready to Q uit: No; Counseling Given: Yes Comments:2-3 cig a day when drinking Alcohol Use Standard Drinks/Week Comments Yes 0 (1 standard drink = 0.6 oz pur e alcohol) Occasional Social Connections Answer Date Recorded Connectedness 0 09/11/2023 Financial Resource Strain Answer Date R ecorded Financial Resource Strain 0 2022 Stress Answer Date Recorded Stress 0 09/11/2023 Physical Activity Answer Date Recorded Physical Activity 0 06/29/2019 Food Insecurity Answer Date Recorded Food 0 09/11/2023 Transportation Needs Answer Date Record ed Transportation 0 09/11/2023 Housing Stability Answer Date Recorded Housing 0 09/11/2023 Safety and Environment Answer Date Glen rded Safety 0 09/11/2023 Utilities Answer Date Recorded Utilities 0 09/11/2023 Employment Answer Date Recorded Employment 0 06/29/2019 Comments No Sex and Gender Information Value Date Recorded Sex Assigned at Female 11/12/2017 8:36 AM PST Legal Sex Female 8:14 AM PDT Gender Identity Female 11/12/2017 8:36 AM PST Sexual Orientation Straight 11/12/2017 8: 36 AM PST Last Filed Vital Signs Vital Sign Reading Time Taken Comments Blood Pressure 116/74 12/28/2023 10:24 AM EST Pulse 76 12/28/2023 10:24 AM EST Temperature 36.5 C (97.7 F) 12/28/2023 10:24 AM EST Respiratory Rate 16 12/28/2023 10:24 AM EST Oxygen Saturation 98% 12/28/2023 10:24 AM EST Inhaled Oxygen Concentration - - Weight 77.6 kg (171 lb) 12/28/2023 10:24 AM EST Height 157.5 cm (5' 2 ) 12/28/2023 10:24 AM EST Body Mass Index 31.28 12/28/2023 10:24 AM EST Plan of Treatment Upcoming Encounters Date Type Department Care Team (Late st Contact Info) Description 09/17/2025 4:20 PM EST Office Visit [facility]ly [facility] [address] [place] [phone] Dorie Dyer MD [address] [place] [address] Health Maintenance Due Date Last Done Comments HPV Screening (self-collect) 1978 HPV Screening 1978 Pap + HPV 1978 Breast Cancer Screening (Mammogram) 2018 Cervical Cancer Screening 11/23/2019 Pap Smear 11/23/2019 11/23/2016 Tobacco Screening 09/17/2020 09/17/2019 Imm-Pneumococcal (3 of 3 - P CV20 or PCV21) 10/14/2021 11/06/2017, 10/14/2016 Imm-DTaP/Tdap/Td (2 - Td or Tdap) 06/26/[address] Colonography 2023 Colonoscopy 2023 Colorectal Cancer Screening 2023 FIT/gFOBT 2023 Fecal DNA 2023 Flexible Sigmoidoscopy 2023 Depression Monitoring 03/27/2024 12/28/2023 , 08/16/2023, 06/30/2021, Additional history exists Relationship Safety Screening/Counseling 09/11/2024 09/11/2023, 08/16/2023, 06/30/2021, Additional history exists Alcohol and Drug Screen 11/05/2024 12/28/19 24, 08/16/2023, 06/30/2021, Additional history exists Hypertension Screening (#1) 12/27/2024 08/23/2015 Tobacco Cessation Counseling (#1) 12/27/2024 019 Annual Wellness (Adult): Indicated (All Coverage) 12/28/2024 12/28/2023, 12/12/2019, 11/23/2016, Additional history exists Anxiety Screening 12/28/2024 12/28/2023 [id number] ( season) 2025 02/01/2023, 04/20/2021, 03/10/2021 Imm-Influenza (#1) 2025 11/06/2017, 1 12/15/2015, 10/21/2015, Additional history exists Diabetes Screening 12/28/2026 12/28/2023, 0 12/28/2023, 04/18/2023, Additional history exists Lipid Screening 12/28/2028 12/28/2023, 04/05, 12/23/2019, Additional history exists Imm-Hepatitis B Discontinued 06/05/2008, 06/05/2008 HIV Screening Completed 12/23/2019 Hepatitis C Screening Completed 12/23/2019, 015 Cervical Ablation/Cold-Knife Conization Discontinued Cervical Cryotherapy Discontinued Colposcopy Discontinued Excision/Leep Discontinued HPV Genotyping Discontinued Vaginal Pap Discontinued Vulvoscopy Discontinued Procedures Procedure Name Priority Date/Time Associated Diagnosis Comments HEMOGLOBIN GLYCOSYLATED A1C Routine 12/28/2023 11:07 AM EST Routine general medical examination at a health care facility Class 1 obesity due to excess calories without serious comorbidity with body mass index (BMI) of 31.0 to 31.9 in adult LIPID PANEL Routine 12/28/2023 11:07 AM EST Routine general medical examination at a health care facility Class 1 obesity due to excess calories without serious comorbidity with body mass index (BMI) of 31.0 to 31.9 in adult ANTIBODY HIV-1&HIV-2 SINGLE RESULT Routine 12/23/2019 3:50 PM EST Encounter for general adult medical examination w/o abnormal findings HEPATITIS A,B,C PANEL Routine 12/23/2019 3:50 PM EST Encounter for general adult medical examination w/o abnormal findings PAP, LIQUID BASED Routine 11/23/2016 10: 33 AM EST Routine gynecological examination from Last 3 Months or Most Recently Relevant to Health Maintenance Results * HEMOGLOBIN GLYCOSYLATED A1C (12/28/2023 11:07 AM EST) HEMOGLOBIN A1C 5.2 <5.7 % of total Hgb [facility] Comment: For the purpose of screening for the presence of diabetes: <5.7% Consistent with the absence of diabetes 5.7-6.4% Consistent with increased risk for diabetes (prediabetes) > or =6.5% Consistent with diabetes This assay result is consistent with a decreased risk of diabetes. Currently, no consensus exists regarding use of hemoglobin A1c for diagnosis of diabetes in children. According to [place] Diabetes Association (ADA) guidelines, hemoglobin A1c <7.0% represents optimal control in non- diabetic patients. Different metrics may apply to specific patient populations. Standards of Medical Care in Diabetes(ADA). Blood Blood / Unknown 12/28/2023 1 1:07 AM EST 12/28/2023 11:08 AM EST us Bakari Tilley MD LAB - BLOOD DRAW Edited Result - Final [facility] [address] [address], [facility] [address] [address] * LIPID PANEL (12/28/2023 11:07 AM EST) CHOLESTEROL, TOTAL 138 <200 mg/dL [facility] HDL CHOLESTEROL 62 > OR = 50 mg/dL [facility] TRIGLYCERIDES 50 <150 mg/dL [facility] LDL-CHOLESTEROL 64 99 mg/dL (calc) [facility] Comment: Reference range: <100 Desirable range <100 mg/dL for primary prevention; <70 mg/dL for patients with CHD or diabetic patients with > or = 2 CHD risk factors. LDL-C is now calculated using the Toña calculation, which is a validated novel method providing better accuracy than the Friedewald equation in the estimation of LDL-C. Ganga SS et al. DAR. 2013;310(43): 4982-3479 (http://education.Popego/faq/GHY242) CHOL/HDLC RATIO 2.2 <5.0 (calc) [facility] NON-HDL CHOLESTEROL 76 <130 mg/dL (calc) [facility] Comment: For patients with diabetes plus 1 major ASCVD risk factor, treating to a non-HDL-C goal of <100 mg/dL (LDL-C of <70 mg/dL) is considered a therapeutic option. Blood Blood / Unknown 12/28/2023 1 1:07 AM EST 12/28/2023 11:08 AM EST Bakari Tilley MD LAB - BLOOD DRAW Final Result [facility] [address] [address], [facility] [address] [address] * (ABNORMAL) HEPATITIS A,B,C PANEL (12/23/2019 3:50 PM EST) Pathologist [facility] HEPATITIS B SURFACE ANTIBODY POSITIVE(A) NEGATIVE [facility] HEPATITIS B SURFACE ANTIGEN NEGATIVE NEGATIVE [facility] Comment: Over the counter supplements containing high doses of biotin may interfere with this assay. If interference is suspected, patients shoud be retested after refraining from biotin supplements for 72 hours. HEPATITIS C VIRUS DIAGNOSTIC NEGATIVE NEGATIVE [facility] HEPATITIS A ANTIBODY TOTAL POSITIVE(A) NEGATIVE [facility] Comment: Over the counter supplements containing high doses of biotin may interfere with this assay. If interference is suspected, patients shoud be retested after refraining from biotin supplements for 72 hours. HEPATITIS B CORE ANTIBODY NEGATIVE NEGATIVE [facility] Blood specimen (specimen) Blood / Unknown 12/23/2019 3:50 PM EST 12/23/2019 4:[address] [facility] - 12/23/2019 6:34 PM EST [employer], [place] [address] [employer] - Mirtha Coronado MD PT ID [id number] ORD# [id number] Lissy [facility] LAB - BLOOD DRAW Edited Res ult - Final Performing Organization Address [facility] [place] [address], * HIV-1 & HIV-2 ANTIBODIES (12/23/2019 3:50 PM EST) [facility] HIV 1 AND 2 ANTIBODY SCREEN NEGATIVE NEGATIVE [facility] Comment: This assay is a 4th generation assay allowing for earlier detection of HIV infection by detecting the presence of the HIV-1 p24 antigen as well as the traditional antibodies to HIV type 1 (including group O) and type 2. Use of a 4th generation assay is the current CDC recommendation for HIV screening. Blood specimen (specimen) Blood / Unknown 12/23/2019 3:50 PM EST 12/23/2019 4:[address] [facility] - 12/23/2019 7:03 PM EST [employer], a member of [address] [address] [employer] - Mirtha Coronado MD PT ID [id number] ORD# [id number] Lissy [facility] - BLOOD DRAW Final Resu lt Performing Organization Address [facility] de Phone Number [address] [address], * PAP, LIQUID BASED (11/23/2016 10:33 AM EST) Specimen from uterine cervix (specimen) Cervix uteri structure / Unknown 11/23/2016 10:33 AM EST Impressions [facility] - 11/23/2016 10:33 AM EST Thinprep pap: Negative for squamous intraepithelial lesion and malignancy HPV: negative Cheryl Hunt PA-C LAB - PATHOLOGY AND CYTOLOG Y AMBULATORY Final Result [facility] [address] [place] [address], from Last 3 Months or Most Recently Relevant to Health Maintenance Insurance [facility] [address] [employer] Care Teams Cash Applications Coordinator Relationship Specialty Start Date End Date Bakari Tilley MD [address] [place] [address] PCP - General Internal Medicine 09/23/21
[2025-08-19 20:03] LABS: Alanine Aminotransferase 20 U/L (0-31); Albumin Level 4.3 g/dL (3.5-5.0); Alkaline Phosphatase 83 U/L (39-117); Anion Gap 11 (12-20); Aspartate Amino Transferase 17 U/L (5-31); Blood Urea Nitrogen 12 mg/dL (9-16); COVID-19 Test Negative (Negative); Calcium 9.5 mg/dL (8.4-10.2); Carbon Dioxide 25 mmol/L (22-29); Chloride 110 mmol/L (96-108); Creatinine Clr Calc Pharmacy 101.0; Estimated Glomerular Filt Rate > 60; IDNOW Serial# 55D5AD1C; IDNOW Serial# 58CA691E; Influenza B2 Negative (Negative); Magnesium 2.1 mg/dL (1.6-2.6); Potassium 4.4 mmol/L (3.3-5.1); Sodium 142 mmol/L (135-145); Total Protein 6.7 g/dL (6.5-8.0)
[2025-08-19 22:03] VITALS: BP 135/57; PULSE 61; RESP 16; TEMP 36.9; O2SAT 96
[2025-08-19] MEDS: Albuterol Sulfate 2.5 MG, Albuterol/Iprat 2.5/0.5MG 3 ML 3 ML INHALE (23:22)
[2025-08-19 23:23] VITALS: PULSE 72; O2SAT 98
[2025-08-20 00:09] VITALS: BP 140/82; PULSE 66; RESP 18; TEMP 36.7; O2SAT 96
== END 2025-08-20 00:11 | disposition home or self-care (01) ==
PROVIDERS: Physician Assistant Medical; Emergency Provider Student in an Organized Health Care Education/Training Program; PCP Family Medicine
DX: J45.901 Unspecified asthma with (acute) exacerbation (principal); R06.02 Shortness of breath; Z11.52 Encounter for screening for COVID-19; Z79.899 Other long term (current) drug therapy
CPT/HCPCS: 71046; 80053; 83735; 85025; 87502; 87635; 94640; 99284

== ENCOUNTER → 2025-08-19 19:35 | Outpatient (BNV) | payer SELFPAY | PROVIDERS: PCP Family Medicine; Visit Provider Radiology Diagnostic Radiology | DX: R06.02 Shortness of breath (principal) | CPT/HCPCS: 71046 ==